=== PATIENT | female | born 1990 | race Caucasian/White ===

== ENCOUNTER → 2016-11-15 | Outpatient (CLI) | payer OTHER | LOC: RAD 17:13 | PROVIDERS: ATTEND Family Medicine | DX: M54.5 Low back pain (principal); M51.36 Other intervertebral disc degeneration, lumbar region | CPT/HCPCS: 72148 ==

== ENCOUNTER 2019-05-30 13:01 | Emergency (ER) | payer OTHER ==
--- NOTE | 2019-05-30 14:19 | ER Document Report ---
ED Medical Screen (RME) - General Chief Complaint: Vaginal Bleeding Stated Complaint: VAGINAL BLEEDING Time Seen by Provider: 05/30/19 14:14 Primary Care Provider: YUE INMAN MD [Primary Care Provider] - Follow up as needed Notes: Patient is a 28-year-old female presents to the emergency department for vaginal bleeding. States her last menstrual cycle was on April 26, 2019. States she took 4 at home test 2 of which were positive. States she presented to her primary care provider who did a serum level. States her primary care provider told her that "the tests were inconclusive." Patient states she started with vaginal bleeding yesterday with "more cramping than normal." GENERAL: Alert, interacts well. No acute distress. ABDOMEN: Soft, suprapubic and bilateral pelvic pain noted. Non-distended. Bowel sounds present in all 4 quadrants. I have greeted and performed a rapid initial assessment of this patient. A comprehensive ED assessment and evaluation of the patient, analysis of test results and completion of the medical decision making process will be conducted by additional ED providers. I have specifically instructed the patient or family members with the patient to immediately return to any nursing staff should anything change in the patient's condition or with their chief complaint. This medical record was dictated with voice recognizing software. There may be grammatical, syntax errors that are unintended. TRAVEL OUTSIDE OF THE [place] IN LAST 30 DAYS: No - Related Data Allergies/Adverse Reactions: No Known Allergies Allergy (Unverified 01/13/16 21:14) Physical Exam - Vital signs Vitals: Temp Pulse Resp BP Pulse Ox 98.9 F 100 12 116/66 98 05/30/19 13:07 05/30/19 13:07 05/30/19 13:07 05/30/19 13:07 05/30/19 13:07 Course - Vital Signs Vital signs: Temp Pulse Resp BP Pulse Ox 98.9 F 100 12 116/66 98 05/30/19 13:07 05/30/19 13:07 05/30/19 13:07 05/30/19 13:07 05/30/19 13:07 Doctor's Discharge - Discharge Referrals: YUE INMAN MD [Primary Care Provider] - Follow up as needed
[2019-05-30 14:56] LABS: ABSOLUTE LYMPHOCYTES (AUTO) 1.8 10^3/uL (0.5-4.7); ABSOLUTE MONOCYTES (AUTO) 0.5 10^3/uL (0.1-1.4); ABSOLUTE NEUT (AUTO) 4.6 10^3/uL (1.7-8.2); BASOPHILS % (AUTO) 0.4 % (0-2); EOSINOPHILS % (AUTO) 0.2 % (0-6); HEMATOCRIT 35.9 % (36.0-47.0); LYMPHOCYTES % (AUTO) 26.5 % (13-45); MEAN CORPUSCULAR HGB CONC 33.5 g/dL (32.0-36.0); MEAN CORPUSCULAR VOLUME 89 fl (80-97); MONOCYTES % (AUTO) 6.6 % (3-13); PLATELET COUNT 218 10^3/uL (150-450); RED BLOOD COUNT 4.01 10^6/uL (3.72-5.28); RED CELL DISTRIBUTION WIDTH 13.4 % (11.5-14.0); SEGMENTED NEUTROPHILS % (AUTO) 66.3 % (42-78); TOTAL CELLS COUNTED % (AUTO) 100 %; WHITE BLOOD COUNT 6.9 10^3/uL (4.0-10.5)
[2019-05-30 15:02] LABS: APPEARANCE,URINE CLEAR; BILIRUBIN,URINE NEGATIVE (NEGATIVE); COLOR,URINE STRAW; GLUCOSE, URINE NEGATIVE (NEGATIVE); KETONES,URINE NEGATIVE (NEGATIVE); LEUKOCYTE ESTERASE,URINE NEGATIVE (NEGATIVE); NITRITE,URINE NEGATIVE (NEGATIVE); PROTEIN,URINE NEGATIVE (NEGATIVE); URINE SPECIFIC GRAVITY 1.002; UROBILINOGEN,URINE NEGATIVE mg/dL (<2.0)
[2019-05-30 15:13] LABS: ALANINE AMINOTRANSFERASE 18 U/L (9-52); ALBUMIN 4.3 g/dL (3.5-5.0); ALKALINE PHOSPHATASE 48 U/L (38-126); ANION GAP 8 (5-19); ASPARTATE AMINO TRANSFERASE 20 U/L (14-36); BILIRUBIN,DIRECT 0.3 mg/dL (0.0-0.4); BILIRUBIN,TOTAL 0.3 mg/dL (0.2-1.3); BLOOD UREA NITROGEN 8 mg/dL (7-20); CALCIUM 9.3 mg/dL (8.4-10.2); CARBON DIOXIDE 27 mmol/L (22-30); CHLORIDE 106 mmol/L (98-107); GLUCOSE 81 mg/dL (75-110); POTASSIUM 4.2 mmol/L (3.6-5.0); TOTAL PROTEIN 6.9 g/dL (6.3-8.2)
--- NOTE | 2019-05-30 15:48 | ER Document Report ---
ED General - General Chief Complaint: Vaginal Bleeding Stated Complaint: VAGINAL BLEEDING Time Seen by Provider: 05/30/19 14:14 Primary Care Provider: AMERICA CARVER DO [ACTIVE STAFF] - Follow up in 1 week (for [employer] follow up) TRAVEL OUTSIDE OF THE [place] IN LAST 30 DAYS: No - HPI Notes: 28-year-old female to the emergency department with complaints of lower abdominal pelvic cramping and vaginal bleeding that began yesterday and is gotten worse today. She states that she has had 4 positive tests at home and she saw her primary care physician yesterday and had blood work done. She was called today and told that her beta quant level through the office was " indeterminate". States that her last period was April 27 and she has not had a missed period. States that the bleeding today is heavy and typical of her normal periods. She does report that she and her are actively trying to get . She has not been on any control as of late. She is a G2, P2. - Related Data Allergies/Adverse Reactions: No Known Allergies Allergy (Unverified 01/13/16 21:14) Past Medical History - General Information source: Patient Last Menstrual Period: 04/27/19 - Social History Smoking Status: Never Smoker Chew tobacco use (# tins/day): No Frequency of alcohol use: None Drug Abuse: None Family History: Reviewed & Not Pertinent Patient has suicidal ideation: No Patient has homicidal ideation: No Renal/ Medical History: Denies: Hx Peritoneal Dialysis Review of Systems - Review of Systems Constitutional: denies: Chills, Fever EENT: No symptoms reported Cardiovascular: denies: Chest pain, Dyspnea, Syncope, Dizziness, Lightheaded Respiratory: denies: Cough, Short of breath Gastrointestinal: Abdominal pain. denies: Diarrhea, Nausea, Vomiting Genitourinary: denies: Frequency, Flank pain, Hematuria Female Genitourinary: See HPI, Last menstrual period - april 27, Vaginal bleeding Musculoskeletal: No symptoms reported Skin: No symptoms reported Neurological/Psychological: No symptoms reported Physical Exam - Vital signs Vitals: Temp Pulse Resp BP Pulse Ox 98.9 F 100 12 116/66 98 05/30/19 13:07 05/30/19 13:07 05/30/19 13:07 05/30/19 13:07 05/30/19 13:07 Interpretation: Normal - General General appearance: Appears well, Alert In distress: None - HEENT Head: Normocephalic, Atraumatic Eyes: Normal Pupils: PERRL - Respiratory Respiratory status: No respiratory distress Chest status: Nontender Breath sounds: Normal Chest palpation: Normal - Cardiovascular Rhythm: Regular Heart sounds: Normal auscultation Murmur: No - Abdominal Inspection: Normal Distension: No distension Bowel sounds: Normal Tenderness: Nontender Organomegaly: No organomegaly - Back Back: Normal. No: CVA tenderness, Vertebra tenderness - Neurological Neuro grossly intact: Yes Cognition: Normal Orientation: AAOx4 Shashi Coma Scale Eye Opening: Spontaneous Shashi Coma Scale Verbal: Oriented [place] Coma Scale Motor: Obeys Commands Shashi Coma Scale Total: 15 Speech: Normal Motor strength normal: LUE, RUE, LLE, RLE Sensory: Normal - Psychological Associated symptoms: Normal affect, Normal mood - Skin Skin Temperature: Warm Skin Moisture: Dry Skin Color: Normal Course - Re-evaluation Re-evalutation: Impression: Vaginal bleeding. Patient has a beta quant of less than 2.39 which is essentially zero, but will have this trended with her physician. She has a negative Ultrasound here -- had a right ovarian cyst. Pt has a soft nontender abdominal exam on repeat exam. She has a stable H and H. vital signs are reassuring. - Vital Signs Vital signs: Temp Pulse Resp BP Pulse Ox 98.9 F 69 15 112/66 100 05/30/19 13:07 05/30/19 17:50 05/30/19 17:50 05/30/19 17:50 05/30/19 17:50 - Laboratory Result Diagrams: 05/30/19 14:45 05/30/19 14:45 Laboratory results interpreted by me: 05/30/19 05/30/19 13:11 14:45 Hct 35.9 L Urine Blood LARGE H Discharge - Discharge Clinical Impression: Vaginal bleeding, Right ovarian cyst Condition: Stable Disposition: HOME, SELF-CARE Instructions: Vaginal Bleeding ([facility]) Additional Instructions: FOLLOW UP WITH YOUR PHYSICIAN, DR. CONN, ON SUNDAY FOR A REPEAT BETA QUANTATIVE LEVEL. YOUR BETA LEVEL TODAY WAS <2.39. RETURN IF ANY WORSENING SYMPTOMS SUCH EXCESSIVE VAGINAL BLEEDING, PASSING OUT, FEVERS, CHEST PAIN, OR SHORTNESS OF BREATH. Referrals: AMERICA CARVER DO [ACTIVE STAFF] - Follow up in 1 week (for [employer] follow up)
--- NOTE | 2019-05-30 17:12 | RADIOLOGY REPORT (SQ) ---
EXAM DESCRIPTION: U/S NON OB PEL TV W/DOPPLER COMPLETED DATE/TIME: 05/30/2019 4:25 pm REASON FOR STUDY: pelvic pain, left sided COMPARISON: None. TECHNIQUE: Dynamic and static grayscale images acquired of the pelvis via transvaginal approach and recorded on PACS. Additional selected color Doppler and spectral images recorded. LIMITATIONS: None. FINDINGS: UTERUS: Contour normal. No mass. ENDOMETRIAL STRIPE: No focal or generalized thickening. No masses. CERVIX: No nabothian cysts. RIGHT OVARY AND DOPPLER: Normal size. No worrisome masses. Normal arterial vascular flow without evid ence for torsion. 1.9 cm functional follicle in the right ovary. LEFT OVARY AND DOPPLER: Normal size. No worrisome masses. Normal arterial vascular flow without evide nce for torsion. FREE FLUID: None noted. OTHER: No other significant finding. MEASUREMENTS: UTERUS: 6.9 cm ENDOMETRIAL STRIPE: 5.8 mm RIGHT OVARY: 3.6 cm LEFT OVARY: 2.8 cm IMPRESSION: No significant finding. Functional right follicle measuring 2 cm. COMMENT: Followup of asymptomatic benign ovarian cysts detected by ultrasound in PREMENOPAUSAL reji ents Simple cyst: *? 5 cm: no followup *Note: If cyst is clinically symptomatic or otherwise concerning, other followup may be warranted. Based on recommendations of the Society for Radiologists in Ultrasound Consensus Conference Statement 2010 on management of asymptomatic ovarian and other adnexal cysts imaged at ultrasound. TECHNICAL DOCUMENTATION: JOB ID: [id number] [employer]- All Rights Reserved Rev-03/22 Reading location - IP/workstation name: [email or web address]
[2019-05-30 17:51] VITALS: BP 112/66
== END 2019-05-30 17:57 | disposition home or self-care (01) ==
LOC: ER 13:01
DX: N83.201 Unspecified ovarian cyst, right side (principal); N93.9 Abnormal uterine and vaginal bleeding, unspecified; R10.2 Pelvic and perineal pain; R10.30 Lower abdominal pain, unspecified
CPT/HCPCS: 36415; 76830; 80053; 81001; 84702; 84703; 85025; 86900; 86901; 93976; 99284